=== PATIENT | male | born 2000 ===

== ENCOUNTER → 2023-08-16 | Outpatient (CLI) | payer OTHER | END | disposition home or self-care (01) | LOC: RAD 11:23 | PROVIDERS: ATTEND Orthopaedic Surgery Sports Medicine | DX: M79.672 Pain in left foot (principal) ==

== ENCOUNTER 2023-09-06 07:52 | Outpatient (CLI) | payer OTHER | END 2023-09-06 07:59 | disposition home or self-care (01) | LOC: RAD 07:52 | PROVIDERS: ATTEND Orthopaedic Surgery Sports Medicine | DX: S92.412A Displaced fracture of proximal phalanx of left great toe, initial encounter for closed fracture (principal) ==

== ENCOUNTER 2023-09-27 10:25 | Outpatient (CLI) | payer OTHER | END 2023-09-27 10:33 | disposition home or self-care (01) | LOC: RAD 10:25 | PROVIDERS: ATTEND Physical Medicine & Rehabilitation | DX: M79.672 Pain in left foot (principal) ==